=== PATIENT | male | born 1980 | race Caucasian/White ===

== ENCOUNTER 2018-09-27 14:52 | Emergency (ER) | payer OTHER ==
[2018-09-27] MEDS ORDERED: Adacel (T-DAP) 0.5 ML SYRINGE ONE (15:02)
== END 2018-09-27 15:17 | disposition home or self-care (01) ==
LOC: ERS 14:52
DX: S51.851A Open bite of right forearm, initial encounter (principal); W54.0XXA Bitten by dog, initial encounter
CPT/HCPCS: 12001; 90471; 90715

== ENCOUNTER 2019-01-03 13:20 | Inpatient (IN) | payer OTHER, SELFPAY ==
[2019-01-03] MEDS ORDERED: Morphine 4 MG/ML VIAL ONE (13:27)
[2019-01-03] MEDS ORDERED: Ondansetron PF 4 MG/2 ML Vial ONE (13:27)
[2019-01-03] MEDS ORDERED: Nitroglycerin 100MG/250ML BOT 0 ML ONE (13:31)
[2019-01-03] MEDS ORDERED: Midazolam HCl 2 mg/2 ml Vial ONE (13:35)
[2019-01-03] MEDS ORDERED: DOPamine 400 MG/D5W 250 ML 0 ML ONE (13:38)
[2019-01-03] MEDS ORDERED: Atropine Sulfate 1 mg/10 ml Syringe ONE (13:38)
[2019-01-03 13:43] LABS: #Basophils 0.2 thou/uL (0.0-0.2); #Eosinphils 0.1 thou/uL (0.0-0.7); #Lymphocytes 3.8 thou/uL (1.20-3.40); #Monocytes 0.9 thou/uL (0.11-0.59); #Neutrophils 7.4 thou/uL (1.40-6.50); %Basophils 1.4 % (0.0-1.0); %Eosinophils 0.7 % (0.0-10.0); %Lymphocytes 30.7 % (21.0-51.0); %Neutrophils 60.2 % (42.0-75.0); Hemoglobin 16.9 g/dL (14.0-18.0); Mean Corpuscular HGB CONC 32.3 g/dL (32.0-36.0); Mean Corpuscular Hemoglobin 29.7 pg (27.0-31.0); Mean Corpuscular Volume 92.1 fL (78.0-98.0); Mean Platelet Volume 7.6 fL (7.4-10.4); Platelet Count 297 thou/uL (130-400); RBC Distribution Width 12.1 % (11.5-14.5); Red Blood Cell (RBC) Count 5.69 mill/uL (4.70-6.10); White Blood Cell (WBC) Count 12.3 thou/uL (4.8-10.8)
[2019-01-03 13:47] LABS: Prothrombin Time 13.7 SEC (12.0-14.7)
[2019-01-03] MEDS ORDERED: Heparin 10,000 UNITS/1 ML VIAL ONE (13:51)
[2019-01-03 13:56] LABS: ALT (SGPT) 22 U/L (8-55); AST (SGOT) 24 U/L (5-34); Albumin 4.7 g/dL (3.5-5.0); Alkaline Phosphatase 74 U/L (40-150); Anion Gap 17 mmol/L (10-20); BUN (Urea Nitrogen) 26 mg/dL (8.9-20.6); Bilirubin, Total 0.5 mg/dL (0.2-1.2); CK (CPK) 479 U/L (30-200); Calc. Creatinine Clearance 0 mL/min (70-130); Calcium 9.9 mg/dL (7.8-10.44); Carbon Dioxide 21 mmol/L (22-29); Chloride 106 mmol/L (98-107); Estimated GFR-MDRD 63; Globulin 2.9 g/dL (2.4-3.5); Glucose 102 mg/dL (70-105); Potassium 3.9 mmol/L (3.5-5.1); Protein, Total 7.6 g/dL (6.0-8.3); Sodium 140 mmol/L (136-145)
[2019-01-03] MEDS ORDERED: Aggrastat 12.5 MG/250 ML 250 ML ONE (13:56)
[2019-01-03] MEDS ORDERED: Nitroglycerin 50 MG/250 ML BOT 250 ML ONE (14:03)
[2019-01-03] MEDS ORDERED: Fentanyl 100 MCG/2 ML VIAL ONE (14:28)
[2019-01-03] MEDS ORDERED: Iopamidol 370 76% 50 ML VIAL FS ONE (15:44)
[2019-01-03] MEDS ORDERED: Iopamidol 370 76% 100 ML VIAL ONE (15:44)
[2019-01-03] MEDS ORDERED: Aggrastat 12.5 MG/250 ML 250 ML IVPB SCH (15:45)
[2019-01-03 16:10] LABS: D-Dimer Test Less than 0.27 *mcg/mL (0.27-0.43)
[2019-01-03] MEDS ORDERED: Heparin 25,000 units/D5W 25,000 UNIT in Premix Bag 1 BAG IV SCH (16:30)
[2019-01-03] MEDS: Carvedilol 3.125 MG TAB PO SCH (17:06)
[2019-01-03 17:28] VITALS: BMI 30.8
[2019-01-03] MEDS ORDERED: Ondansetron ODT 4 MG TAB PO PRN (17:45)
[2019-01-03 19:37] LABS: #Basophils 0.1 thou/uL (0.0-0.2); #Lymphocytes 2.1 thou/uL (1.20-3.40); #Monocytes 0.7 thou/uL (0.11-0.59); #Neutrophils 10.9 thou/uL (1.40-6.50); %Basophils 0.7 % (0.0-1.0); %Eosinophils 0.2 % (0.0-10.0); %Monocytes 4.8 % (0.0-10.0); %Neutrophils 79.3 % (42.0-75.0); Hemoglobin 15.3 g/dL (14.0-18.0); Mean Corpuscular HGB CONC 33.3 g/dL (32.0-36.0); Mean Corpuscular Hemoglobin 30.9 pg (27.0-31.0); Mean Corpuscular Volume 92.7 fL (78.0-98.0); Mean Platelet Volume 7.2 fL (7.4-10.4); Platelet Count 264 thou/uL (130-400); Red Blood Cell (RBC) Count 4.96 mill/uL (4.70-6.10); White Blood Cell (WBC) Count 13.7 thou/uL (4.8-10.8)
[2019-01-03 19:51] LABS: PTT 188.3 SEC (22.9-36.1)
[2019-01-03 20:02] LABS: Troponin I 0.409 ng/mL (< 0.028)
[2019-01-03] MEDS: Fentanyl 100 MCG/2 ML VIAL SLOW IVP PRN (22:01)
[2019-01-03] MEDS: TICAGRELOR 90 MG TABLET PO SCH (22:02)
[2019-01-03] MEDS: Nitroglycerin 2% Ointment 1 INCH/1 GM Packet TOP SCH (22:02)
--- NOTE | 2019-01-03 22:28 | HP ---
REASON FOR ADMISSION: Acute anterior myocardial infarction. HISTORY OF PRESENT ILLNESS: Mr. Brian Cullen is a very pleasant 38-year-old gentleman. The patient was actually exercising, working out today, doing some weightlifting and circuit training, started to have chest pain. He was brought to the emergency room where he was found to be having acute anterior myocardial infarction. The patient was given heparin intravenously 4000 units in the emergency room and aspirin. While being transported down the paiz to the cardiac catheterization lab, the patient started having frequent PVCs, short runs of ventricular tachycardia and then ventricular fibrillation requiring defibrillation. He had very brief CPR for just a few seconds. He was taken to the cardiac catheterization lab and was found to have intracoronary thrombus without any evidence of obstructive coronary disease. PAST MEDICAL HISTORY: The patient has had problem with severe rash. He has been treated with multiple medications for that including most recently a biologic injectable. The patient does not use alcohol or tobacco. 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 No cardiac history. No cardiac medicines. FAMILY HISTORY: Negative for blood clot disorders. Negative for coronary disease at young age. ALLERGIES: NONE RECORDED. REVIEW OF SYSTEMS: CONSTITUTIONAL: No weakness or fatigue. VISION: No changes. HEARING: No changes. PULMONARY: No cough or wheezing. GASTROINTESTINAL: No nausea, vomiting, or diarrhea. SKIN: No rashes. NEUROLOGIC: No unilateral weakness or numbness. PSYCHIATRIC: No unusual depression or anxiety. HEMATOLOGIC: No unusual bruising. SKIN: He has had a rash, but that got better with a biologic. PHYSICAL EXAMINATION: GENERAL: He is a young man, in severe distress with severe chest pain, lying very still, very apprehensive. VITAL SIGNS: The blood pressure currently is 150/60. The pulse now is 70. HEENT: Eyes, sclerae are nonicteric. Mouth, mucous membranes are moist. NECK: Supple. No lymphadenopathy. LUNGS: Clear. No wheezing, rales, or rhonchi. CARDIAC: Normal S1, normal S2. There is no murmur, rub, or gallop. ABDOMEN: Soft, nontender. EXTREMITIES: Warm, dry. No clubbing, cyanosis, or edema. Good peripheral pulses. The initial EKG showed sinus rhythm, severe ST elevation in V1, V2, V3, V4, V5, ST depression in lead III, some ST elevation in lead I as well. Followup EKG after coming back from the laborer yard shows there is still some ST elevation, but it is improved, but there is still some ST elevation in leads III, II, and aVF, V3, V4, V5, but the elevations are much improved. In the laborer yard, we found that the left main was normal. In the LAD, there was mobile thrombus in the proximal segment. The distal LAD was occluded, looks like there is likely thrombus there in the diagonal branch, there is also occlusion in the mid diagonal branch. The right coronary is normal. The left ventricular ejection fraction is 45%. The mid and distal anterior wall and apex akinetic. The patient was given Aggrastat and heparin. The flow improved to the diagonal branch and the distal LAD. The thrombus was still present, but is improving. ASSESSMENT: 1. Acute anterior myocardial infarction associated with intracoronary thrombus in the absence of any identifiable significant plaque. 2. Ventricular fibrillation probably associated with reperfusion. PLAN: 1. Aspirin. 2. Ticagrelor. 3. Continue Aggrastat. 4. Heparin. 5. We will probably give him some Lovenox tomorrow. 6. Thrombosis panel. 7. Further care dictated by hospital course. Further cardiac enzymes will be done. Hopefully, the patient's left ventricular function will improve. Job ID: [id number]
--- NOTE | 2019-01-03 23:49 | CON ---
DATE OF CONSULTATION: 01/03/2019 HISTORY OF PRESENT ILLNESS: Mr. Cullen is a very pleasant 38-year-old male who presented with chest discomfort that started when he was exercising earlier today. It resolved and then when he went back to his desk, his chest discomfort came back. One of his coworkers became concerned and drove him to the emergency department. As he was driving to the emergency department, his left arm got numb. He got diaphoretic and became very nauseated. He was taken emergently to the mobile home laborer and found to have clot, but no obstructing plaque. Subsequently he was anticoagulated had dramatic improvement in his clinical picture. He did require cardioversion for ventricular tachycardia x2 at the time he was rolling into the mobile home laborer. PAST MEDICAL HISTORY: Remarkable for a dermatitis for which he has been taking immunotherapy. This is actually being managed by an skip tender. He says he originally was treated with voriconazole and then his rash came back while he is on vacation. He says it is intensely pruritic. 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 He is not having any problems with rash at this time. FAMILY HISTORY: Negative for lung disease in early age or heart disease in early age. SOCIAL HISTORY: He is a nonsmoker, nondrinker. ALLERGIES: HE HAS NO REPORTED DRUG ALLERGIES. PHYSICAL EXAMINATION: GENERAL: When he arrived from the mobile home laborer, he was in no distress. VITAL SIGNS: Stable on arrival. HEAD AND NECK: Unremarkable. LUNGS: Clear. HEART: Regular rhythm. S1 and S2 are normal. ABDOMEN: Soft and nontender. EXTREMITIES: Without clubbing, cyanosis, or edema. LABORATORY DATA: White count is 12.3, hemoglobin is 16.9, platelets are 52.4. Sodium 140, potassium 3.9, chloride 106, bicarb 21, BUN 26, creatinine 1.28. Pro-time is 15.8, PTT is greater than 250 (he is anticoagulated). Thrombosis panel was ordered when he arrived in the critical care unit. IMPRESSION: 1. Myocardial infarction. 2. Borderline erythrocytosis. He says he just worked out. He may have just been intravascularly dry. This will be repeated. If his hematocrit stays elevated, a sleep study should be considered. His troponin fortunately was normal on arrival. Hopefully, he did not sustain significant myocardial injury. Critical care time is 35 minutes. Job ID: [id number] [facility]
[2019-01-04] MEDS: Fentanyl 100 MCG/2 ML VIAL SLOW IVP PRN ×2 (00:15→05:17)
[2019-01-04 05:23] LABS: #Eosinphils 0.1 thou/uL (0.0-0.7); #Lymphocytes 2.1 thou/uL (1.20-3.40); #Monocytes 0.8 thou/uL (0.11-0.59); #Neutrophils 8.7 thou/uL (1.40-6.50); %Basophils 0.2 % (0.0-1.0); %Eosinophils 0.6 % (0.0-10.0); %Lymphocytes 18.1 % (21.0-51.0); %Monocytes 7.2 % (0.0-10.0); Hemoglobin 14.2 g/dL (14.0-18.0); Mean Corpuscular HGB CONC 33.1 g/dL (32.0-36.0); Mean Corpuscular Hemoglobin 30.8 pg (27.0-31.0); Mean Platelet Volume 7.3 fL (7.4-10.4); Platelet Count 258 thou/uL (130-400); Red Blood Cell (RBC) Count 4.62 mill/uL (4.70-6.10); White Blood Cell (WBC) Count 11.7 thou/uL (4.8-10.8)
[2019-01-04 05:24] LABS: ALT (SGPT) 21 U/L (8-55); AST (SGOT) 46 U/L (5-34); Albumin 3.9 g/dL (3.5-5.0); Alkaline Phosphatase 63 U/L (40-150); Anion Gap 12 mmol/L (10-20); BUN (Urea Nitrogen) 20 mg/dL (8.9-20.6); Bilirubin, Total 0.5 mg/dL (0.2-1.2); Calc. Creatinine Clearance 144 mL/min (70-130); Calcium 8.9 mg/dL (7.8-10.44); Carbon Dioxide 24 mmol/L (22-29); Cardiac Risk 5.3 (Less than 4.5); Chloride 106 mmol/L (98-107); Cholesterol 233 mg/dl (< 200 Desired); Estimated GFR-MDRD Greater than 90; Globulin 2.1 g/dL (2.4-3.5); Glucose 131 mg/dL (70-105); HDL Cholesterol 44 mg/dL (>60 Neg Risk); LDL Cholesterol, Calculated 161 mg/dL; Potassium 3.7 mmol/L (3.5-5.1); Sodium 138 mmol/L (136-145); Triglycerides 138 mg/dL (Less than 150)
[2019-01-04 05:39] LABS: Troponin I 3.912 ng/mL (< 0.028)
[2019-01-04] MEDS: Nitroglycerin 2% Ointment 1 INCH/1 GM Packet TOP SCH ×3 (07:19→20:24)
[2019-01-04] MEDS: TICAGRELOR 90 MG TABLET PO SCH ×2 (08:16→20:23)
[2019-01-04] MEDS: Lisinopril 2.5 MG TAB PO SCH (08:16)
[2019-01-04] MEDS: Aspirin 81 mg Enteric Coated Tablet PO SCH (08:16)
[2019-01-04] MEDS: Carvedilol 3.125 MG TAB PO SCH ×2 (08:16→17:26)
[2019-01-04] MEDS ORDERED: Potassium Chloride 20 MEQ TAB PO SCH (09:30)
--- NOTE | 2019-01-04 09:55 | PRG ---
DATE OF SERVICE: 01/04/2019 SUBJECTIVE: Mr. Cullen has had no chest pain. He says he is feeling well. OBJECTIVE: VITAL SIGNS: Blood pressure 115/84, heart rate is in the 80s and he is in sinus rhythm, respiratory rate is in the teens, and oximetry is 97%. LUNGS: Clear. HEART: Regular rhythm. ABDOMEN: Soft and nontender. EXTREMITIES: Without asymmetry or edema. LABORATORY DATA: White count 11.7, hemoglobin 14.2, and platelets 258. Electrolytes were normal today. Troponin this morning was 3.9. IMPRESSION: Myocardial infarction, improved with percutaneous intervention and anticoagulation. His activated clotting time this morning is 132. Thrombosis panel is pending. We will continue supportive care. Appears to be medically stable at this point in time. Critical care time is 35 minutes. Job ID: [id number] [facility]
--- NOTE | 2019-01-04 10:14 | PRG ---
DATE OF SERVICE: 01/04/2019 SUBJECTIVE: Mr. Cullen is feeling well. No chest pain or pressure. He feels quite well today. He is on Aggrastat still. OBJECTIVE: VITAL SIGNS: His blood pressure is 115/84, pulse 88 and regular. LUNGS: Clear. CARDIAC: Normal S1 and normal S2. ABDOMEN: Soft and nontender. EXTREMITIES: No edema. SKIN: Warm and dry. : Right groin is fine and nontender. LABORATORY DATA: Peak troponin was 3.912. Potassium 3.7. LDL cholesterol this morning was 161. ASSESSMENT: 1. Status post ST-elevation myocardial infarction related to intracoronary thrombus without any identified significant plaque in the coronaries. 2. Rash of uncertain etiology, which is being treated with immunologic medicines. PLAN: 1. Continue Aggrastat until this afternoon and stop. 2. He is on dual anti-platelet drugs. 3. Aspirin and ticagrelor. 4. KARISHMA inhibitor and beta-blockers. 5. Statins. Job ID: [id number]
[2019-01-04 16:27] LABS: Protein C Activity 104 % (78-152)
[2019-01-04 18:17] LABS: Cardiolipin IgA Ab 3.2 APL-U/mL (<14 Negative); Cardiolipin IgG Ab 1.8 GPL-U/mL (<10 Negative); EliA APS New Method **** NEW METHOD ****
[2019-01-04] MEDS: Atorvastatin Calcium 40 MG TAB PO SCH (20:23)
[2019-01-05] MEDS: Nitroglycerin 2% Ointment 1 INCH/1 GM Packet TOP SCH ×2 (05:20→13:22)
[2019-01-05 06:14] LABS: Anion Gap 11 mmol/L (10-20); BUN (Urea Nitrogen) 18 mg/dL (8.9-20.6); Calc. Creatinine Clearance 132 mL/min (70-130); Carbon Dioxide 25 mmol/L (22-29); Chloride 107 mmol/L (98-107); Estimated GFR-MDRD 88; Glucose 94 mg/dL (70-105); Potassium 4.1 mmol/L (3.5-5.1); Sodium 139 mmol/L (136-145)
[2019-01-05 07:24] LABS: INR-International Normal Ratio 1.1; Prothrombin Time 14.2 SEC (12.0-14.7)
[2019-01-05 07:25] LABS: PTT 30.1 SEC (22.9-36.1)
[2019-01-05] MEDS: TICAGRELOR 90 MG TABLET PO SCH ×2 (09:51→20:33)
[2019-01-05] MEDS: Lisinopril 2.5 MG TAB PO SCH (09:51)
[2019-01-05] MEDS: Aspirin 81 mg Enteric Coated Tablet PO SCH (09:51)
[2019-01-05] MEDS: Carvedilol 3.125 MG TAB PO SCH ×2 (09:51→16:55)
--- NOTE | 2019-01-05 10:31 | PRG ---
DATE OF SERVICE: 01/05/2019 SUBJECTIVE: Mr. Cullen is feeling fine. No complaints. No chest pain. He is up walking around. OBJECTIVE: VITAL SIGNS: Blood pressure 117/63 and pulse 76. LUNGS: Clear. CARDIAC: Normal S1, normal S2. ABDOMEN: Soft and nontender. EXTREMITIES: There is no edema. The clotting factors which are back so far are within normal limits at this time, it is still pending. That was drawn when he was on very large doses of heparin, however. ASSESSMENT: 1. Intracoronary thrombus of uncertain etiology. 2. Status post anterior myocardial infarction secondary to intracoronary thrombus. PLAN: 1. He is on dual anti-platelet drugs. 2. Want to redraw the thrombosis panel, now that he is off heparin. 3. Plan dual anti-platelet drugs as well as some antithrombotic medicines such as Xarelto 2.5 mg twice a day. 4. Repeat echocardiogram next week. 5. Tentatively home tomorrow. 6. He is on aspirin, ticagrelor, lisinopril, and carvedilol. 7. I did discuss with Dr. Flores, who is the senior principal software engineer. He said he is not aware of any increased risk from a cardiac standpoint of the biologics that he is taking. Tentatively plan home tomorrow. Job ID: [id number]
--- NOTE | 2019-01-05 16:24 | PRG ---
DATE OF SERVICE: 01/05/2019 SUBJECTIVE: Brian Cullen says he is feeling fine. He denies having chest pain. OBJECTIVE: VITAL SIGNS: His vital signs have been stable. He is afebrile. Heart rate 78, respiratory rate 14, oximetry is 99 on room air, blood pressure 108/ 60. LUNGS: Unchanged. HEART: Unchanged. ABDOMEN: Unchanged. Thrombosis panel is pending. Now he is several days out from getting heparin. We will repeat his thrombosis panel mainly to look for antithrombin III deficiency. His renal function is stable. His creatinine is 0.95. His troponin yesterday was 3.9. IMPRESSION: Status post emergent cardiac catheterization for myocardial infarction. No clear-cut plaque was identified, but a clot was identified. He will be on anti-platelet agents plus an anticoagulant now. I suppose he could have a small plaque dissection that was not easily visible on catheterization, but also concerned about hypercoagulable state. He is medically stable since he has been transferred out of the Critical Care Unit. We will sign off. Job ID: [id number] [facility]
[2019-01-05] MEDS: Atorvastatin Calcium 40 MG TAB PO SCH (20:33)
[2019-01-06] MEDS: Carvedilol 6.25 MG TAB PO SCH ×2 (08:18→17:59)
[2019-01-06] MEDS: TICAGRELOR 90 MG TABLET PO SCH (08:18)
[2019-01-06] MEDS: Aspirin 81 mg Enteric Coated Tablet PO SCH (08:19)
[2019-01-06] MEDS: Lisinopril 2.5 MG TAB PO SCH (08:19)
[2019-01-06] MEDS ORDERED: Apixaban 2.5 MG TAB PO SCH (09:00)
[2019-01-06 10:13] LABS: Factor VIII Test 225.9 % ACTIVE (56-157)
[2019-01-06 11:46] LABS: HEX PHOS LA Tube 1 57.3 SEC; Hexagonal Phospholipid Neut 5.3 SEC (0-8.0)
[2019-01-06 12:14] VITALS: TEMP 98
--- NOTE | 2019-01-06 16:44 | ULT ---
PSEUDOANEURYSM EVALUATION 01/06/19 HISTORY: Right groin heart cath introduced through common femoral vein on Wednesday. COMPARISON: None. FINDINGS: Carballo scale and color flow images do not demonstrate any abscess or pseudoaneurysm. No significant he matoma. IMPRESSION: No abscess or pseudoaneurysm. No significant hematoma. POS: [facility]
[2019-01-06 18:00] VITALS: BP 130/59
[2019-01-09 09:10] LABS: Cardiolipin IgM Ab 8.6 MPL-U/mL (<10 Negative)
--- NOTE | 2019-01-09 10:08 | DIS ---
DATE OF ADMISSION: 01/03/2019 DATE OF DISCHARGE: 01/06/2019 FINAL DIAGNOSES: 1. Anterior myocardial infarction. 2. Intracoronary thrombus with the absence of any obstructive coronary artery disease. 3. Ventricular fibrillation likely associated with reperfusion. MEDICATIONS: At the time of discharge; 1. Aspirin 81 mg a day. 2. Brilinta 90 mg twice a day. 3. Atorvastatin 40 mg a day. 4. Lisinopril 2.5 mg a day. 5. Coreg 6.25 mg twice a day. 6. Xarelto 2.5 mg twice a day. The other medicines that he is on will be continued. Please see admission note for full details. 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 The patient was taken in emergency basis to catheterization lab. He did receive some intravenous heparin in the emergency room while being transported to the cardiac catheterization lab. The chest pain improved. He started having some recurrent 3-beat runs of ventricular tachycardia and then had ventricular fibrillation requiring defibrillation. The patient's pain had improved by the time we got to the garage laborer, we are actually just in the paiz just outside the garage laborer when he had a ventricular fibrillation. Cardiac catheterization reveals approximately that the left main was normal LAD. There was some thrombus in the proximal LAD with some distal occlusion of the LAD and occlusion of a diagonal branch. This was likely the thrombus. Circumflex normal. Right coronary artery normal. Ejection fraction was somewhat diminished at 45% with a mid and distal anterior wall akinetic. The patient had Aggrastat given. He was also given heparin and the thrombus included well over there in the garage laborer in the and the flow improved to the LAD distally in the diagonal branch. The patient was kept on Aggrastat until the next day, he taken out later that day. Fortunately, the patient's troponin level only went up slightly to 3.912. EKG went back to normal. An echocardiogram showed normal left ventricular wall motion, normal function. Normal echo currently. A lot of consideration was given to the best treatment with this gentleman. We have elected to treat him aggressively with strong dual anti-platelet drugs as well as an antithrombotic drug in the form of Xarelto. He also does have an appointment with a marine fisheries technician, Dr. Mireles. The coagulation parameters were drawn and are in the chart as well. The only abnormality being that he has a factor VIII activity of 225, slightly elevated. He had one PTT is very high when he was on heparin. I spoke with Dr. Flores, the clinical sales consultant, treating him, the medicine it does not appear to cause a hypercoagulable state. The patient will be released home. We will check his groin prior to being discharged. He complained of some groin soreness. Otherwise, he will be released home. Job ID: [id number]
== END 2019-01-06 18:15 | disposition home or self-care (01) | DRG 281 ==
LOC: ERS 13:20 → CCU 14:57 → 2NO 01-04 15:24
PROVIDERS: ADMIT Internal Medicine Cardiovascular Disease; ATTEND Internal Medicine Cardiovascular Disease
PROC: 5A2204Z Restoration of Cardiac Rhythm, Single (ICD-10-PCS; principal; 2019-01-03)
PROC: 4A023N7 Measurement of Cardiac Sampling and Pressure, Left Heart, Percutaneous Approach (ICD-10-PCS; 2019-01-03)
PROC: B2111ZZ Fluoroscopy of Multiple Coronary Arteries using Low Osmolar Contrast (ICD-10-PCS; 2019-01-03)
PROC: B2151ZZ Fluoroscopy of Left Heart using Low Osmolar Contrast (ICD-10-PCS; 2019-01-03)
DX: I21.3 ST elevation (STEMI) myocardial infarction of unspecified site (principal); I47.2 Ventricular tachycardia; Z87.2 Personal history of diseases of the skin and subcutaneous tissue
CPT/HCPCS: 36415; 76936; 76942; 80048; 80053; 80061; 81240; 81241; 82550; 83090; 84484; 85025; 85240; 85300; 85303; 85305; 85307; 85347; 85379; 85598; 85610; 85730; 86147; 86850; 86900; 86901; 92977; 93005; 93010; 93306; 93458; 93798; 94760; 96374; 96375; 99152; 99153; C1769; C1887; J0461; J1265; J1644; J2250; J2270; J2405; J3010; J3246; Q9967